=== PATIENT | male | born 2000 | race Two or more races ===

== ENCOUNTER 2023-10-23 18:36 | Emergency (ER) | payer OTHER ==
[~2023-10-23] VITALS: Ht 175.3 cm; Wt 98.9 kg
[2023-10-23 21:28] LABS: HEMATOCRIT 44.4 % (39.0-48.0); HEMOGLOBIN 15.1 g/dL (13-16.00); MEAN CELL VOLUME 85.5 fL (80.0-100.00); MEAN CORPUSCULAR HEMOGLOBIN 29.1 pg (27.00-32.0); PLATELET COUNT 240 K/uL (150-450); RED BLOOD COUNT 5.19 M/uL (4.00-6.00)
[2023-10-23 21:53] LABS: URINE APPEARANCE Clear; URINE BILIRRUBIN Negative (NEGATIVE); URINE BLOOD Negative; URINE COLOR Yellow; URINE GLUCOSE Negative (NEGATIVE); URINE LEUKOCYTE Trace; URINE NITRATE Negative; URINE PROTEIN Trace (NEGATIVE)
[2023-10-23 21:54] LABS: URINE BACTERIA 91.9 uL (0.0-1933); URINE EPITHELIAL CELLS 6.3 uL (0.0-38.8); URINE RBC 9.9 uL (0.0-20.8); URINE WBC 218.2 uL (0.0-23.2)
[2023-10-23] MEDS ORDERED: CEFADROXIL500 MG PO (22:16)
== END 2023-10-23 22:35 ==
LOC: ER 18:36
PROVIDERS: Nurse Practitioner Family
DX: R30.0 Dysuria (principal); R59.0 Localized enlarged lymph nodes

== ENCOUNTER 2023-10-24 15:16 | Outpatient (CLI) | payer OTHER ==
[~2023-10-24 15:16] MED LIST: CEFADROXIL500 MG PO
== END 2023-10-24 23:00 | disposition home or self-care (01) ==
LOC: LAB 15:16
PROVIDERS: ATTEND Urology
DX: Z11.3 Encounter for screening for infections with a predominantly sexual mode of transmission (principal); N30.00 Acute cystitis without hematuria

== ENCOUNTER → 2025-08-16 | Emergency (ER) | payer OTHER ==
[~2025-08-16] VITALS: Ht 175.3 cm; Wt 112.0 kg
[~2025-08-16] MED LIST changes: +ACETAMINOPHEN 500 MG GEL..CAP PO ONE; +CETIRIZINE HCL 10 MG TABLET PO ONE; +CETIRIZINE HCL 5 MG/5 ML ML PO ONE; +GUAIFENESIN/DEXTROMETHORPHAN 100MG/10ML BLIST.PACK PO ONE; +OSEL75CA PO; +OSELTAMIVIR PHOSPHATE 75 MG CAPSULE PO ONE; +TUSSIN DM LIQU118 ML PO; +ZYRTEC10 MG PO
[2025-08-16 13:39] VITALS: BP 121/70; O2SAT 98
[2025-08-16 15:53] LABS: BASO % 0.3 % (0.1-1.2); EOS # 0.00 (0.04-0.54); EOS % 0.0 % (0.7-7.0); LYMPH # 0.81 (1.18-3.74); LYMPH % 12.9 % (19.3-53.1); MEAN PLATELET VOLUME 9.50 fl (9.4-12.4); MONO # 0.83 (0.24-0.82); NEUT # 4.61 (1.56-6.13); NEUT % 73.3 % (34.0-71.1); RED CELL DISTRIBUTION WIDTH 14.0 % (11.6-14.4)
[2025-08-16 15:57] LABS: MONO % 13.2 % (4.7-12.5)
[2025-08-16 17:19] LABS: COVID-19 AG NEGATIVE (NEGATIVE)
== END | disposition home or self-care (01) ==
LOC: ER 12:59
PROVIDERS: Student in an Organized Health Care Education/Training Program
DX: J10.1 Influenza due to other identified influenza virus with other respiratory manifestations (principal); J98.8 Other specified respiratory disorders; Z20.822 Contact with and (suspected) exposure to COVID-19